=== PATIENT | male | born 1990 | race Caucasian/White ===

== ENCOUNTER 2020-01-13 01:19 | Emergency (ER) | payer OTHER ==
[~2020-01-13] VITALS: Ht 175.3 cm; Wt 72.6 kg
[2020-01-13 01:40] VITALS: BP 144/88
--- NOTE | 2020-01-13 02:26 | NUR ---
XRAY AT BESIDE
--- NOTE | 2020-01-13 04:48 | NUR ---
Patient medically cleared for booking in stable condition. Written and verbal after care instructions given. Patient verbalizes understanding of instruction.
== END 2020-01-13 04:57 ==
LOC: ER 01:21
DX: S20.311A Abrasion of right front wall of thorax, initial encounter (principal); M25.521 Pain in right elbow; V49.49XA Driver injured in collision with other motor vehicles in traffic accident, initial encounter; Y93.89 Activity, other specified; Y92.488 Other paved roadways as the place of occurrence of the external cause; Y99.8 Other external cause status
CPT/HCPCS: 71046; 73080-TC